=== PATIENT | male | born 1985 | race Caucasian/White ===

== ENCOUNTER 2020-11-24 09:27 | Outpatient (CLI) | payer BC, SELFPAY ==
--- NOTE | ~2020-11-24 | US_ITS ---
EXAMINATION: US venous doppler LE RT DATE: 11/24/2020 10:02 INDICATION: Phlebitis and thrombophlebitis with right lower limb pain and swelling TECHNIQUE: Grayscale ultrasound images without and with compression and Doppler ultrasound images of the right lower extremity veins were obtained. COMPARISON: None. FINDINGS: The visualized portions of right common femoral vein, profunda (deep) femoral vein, femoral vein, pop liteal vein, peroneal trunk, posterior tibial veins, peroneal veins, gastrocnemius vein and greater s aphenous vein outflow are patent. IMPRESSION: 1. No deep venous thrombosis in the right lower limb. Reviewed, dictated and finalized at location B. D MANAGER
== END 2020-11-24 09:28 | disposition home or self-care (01) ==
LOC: ANHIMG 09:34
PROVIDERS: PCP Family Medicine; Visit Provider Physician Assistant
DX: I80.201 Phlebitis and thrombophlebitis of unspecified deep vessels of right lower extremity (principal)
CPT/HCPCS: 93971

== ENCOUNTER → 2020-12-02 10:36 | Outpatient (CLI) | payer BC, SELFPAY ==
--- NOTE | ~2020-12-02 | XR_ITS ---
EXAMINATION: XR chest 2V DATE: 12/02/2020 11:32 INDICATION: Shortness of breath. Smoker. TECHNIQUE: Frontal and lateral views of the chest were obtained. COMPARISON: None. FINDINGS: The chest demonstrates clear lungs without pneumonia, pleural effusion, or pneumothorax. Th e heart size is normal. IMPRESSION: 1. No acute cardiopulmonary disease. Reviewed, dictated and finalized at location A. PAINTER
== END ==
DX: F17.200 Nicotine dependence, unspecified, uncomplicated (principal); R06.02 Shortness of breath
CPT/HCPCS: 71046

== ENCOUNTER 2022-05-22 16:56 | Emergency (ER) | payer OTHER, SELFPAY ==
[2022-05-22 17:12] VITALS: BP 145/78; PULSE 92; RESP 18; TEMP 36.7; O2SAT 98
--- NOTE | 2022-05-22 17:15 | ED.URI ---
HPI - URI/Sore Throat General Chief Complaint: Upper Respiratory Infection Stated Complaint: sorethroat Time Seen by Provider: 05/22/22 17:15 Source: patient Mode of arrival: ambulatory Limitations: no limitations History of Present Illness HPI Narrative: Mr. Sarabia is a 37-year-old male patient presenting to the clinic today with complaints of a sore throat and fever x1 to 2 days. He reports his highest fever was 101. He reports that he just had COVID back in March. States that he is prone to getting strep throat. No known exposure to anybody with strep, COVID, or influenza. Related Data Home Medications Medication Instructions Recorded Confirmed Zyrtec 05/22/22 bupropion HCl 150 mg tablet,12 hr 150 mg PO BID 05/22/22 05/22/22 sustained-release metformin 500 mg tablet 500 mg BID 05/22/22 05/22/22 rosuvastatin DIRECTED 05/22/22 Allergies Allergy/AdvReac Type Severity Reaction Status Date / Time No Known Allergies Allergy Verified 05/22/22 17:30 Review of Systems Review of Systems: Pertinent positives per HPI. Patient denies any , rash, headache, visual changes, dizziness, cough, runny nose, shortness of breath, chest pain, palpitations, nausea, vomiting, diarrhea, constipation, abdominal pain, or any urinary issues. PMFSH Comments At the time of my signature, I reviewed and agree with the nursing past medical, surgical, social, and family history. There is no relevant family history pertinent to the patient complaint. Exam Narrative: General: Well-developed, well nourished, in no apparent distress Head: Normocephalic, atraumatic Eyes: Pupils equally round and reactive to light bilaterally, EOM intact, sclera and conjunctive clear, no discharge, lids normal Ears: TMs intact and clear, ear canals clear, no drainage, grossly hearing normal. Nose: Nares patent, no discharge, no inflammation, no sinus tenderness. Mouth: Oropharynx without lesions or masses, good dentition, MMM. 1+ bilateral tonsillar enlargement with white exudate Neck: Supple, trachea midline, enlargement of anterior cervical nodes, no thyroid masses or goiter palpable. Cardio: Regular rate and rhythm, s1 and s2 normal, no murmur appreciated. Resp: Clear to auscultation bilaterally anteriorly and posteriorly, no rhonchi, rales, wheezing or rubs Course Course Emergency Course: Portions of this record may have been created with voice recognition software. Level of Care: Express Care Visit Vital Signs Vital signs: Vital Signs Temperature 36.7 C 05/22/22 17:12 Pulse Rate 92 05/22/22 17:12 Respiratory Rate 18 05/22/22 17:12 Blood Pressure 145/78 H 05/22/22 17:12 Pulse Oximetry 98 05/22/22 17:12 Oxygen Delivery Room Air 05/22/22 17:12 Temperature 36.7 C 05/22/22 17:12 Pulse Rate 92 05/22/22 17:12 Respiratory Rate 18 05/22/22 17:12 Blood Pressure 145/78 H 05/22/22 17:12 Pulse Oximetry 98 05/22/22 17:12 Oxygen Delivery Room Air 05/22/22 17:12 Vital signs reviewed MDM - URI/Sore Throat MDM Narrative Medical decision making narrative: At the time of visit patient is resting comfortably on the exam table. Strep screen was obtained and was negative in the clinic however [facility] criteria is 4-4. I will go ahead and empirically treat with a prescription for some Augmentin as he has recently been on some antibiotics. Supportive measures were discussed with the patient he voiced understanding of discharge instructions and agrees to treatment plan. Differential Diagnosis Differential diagnosis: Likely upper respiratory infection, otitis media, sinusitis, viral infection, bronchitis, influenza, pharyngitis and other (COVID) Discharge Plan Discharge Clinical Impression: Exudative pharyngitis Patient Disposition: Home, Self-Care Condition: Stable Instructions: Antibiotic Form, Pharyngitis (ED) Additional Instructions: Take prescription medications only as prescribed-Augmentin
== END 2022-05-22 17:54 | disposition home or self-care (01) ==
PROVIDERS: Emergency Provider Nurse Practitioner Family; PCP Nurse Practitioner
DX: J02.9 Acute pharyngitis, unspecified (principal); Z86.16 Personal history of COVID-19; E78.00 Pure hypercholesterolemia, unspecified
CPT/HCPCS: 87081; 87880; 99213; G0463